=== PATIENT | female | born 1975 | race African-American/Black ===

== ENCOUNTER 2018-10-31 16:57 | Emergency (ER) | payer MEDICAID ==
[2018-10-31 17:13] VITALS: Ht 157.5 cm
[2018-10-31 18:21] VITALS: BP 124/96
== END 2018-10-31 18:21 | disposition home or self-care (01) ==
LOC: ED 16:57
DX: G89.29 Other chronic pain (principal); M25.562 Pain in left knee; J45.909 Unspecified asthma, uncomplicated; Z88.6 Allergy status to analgesic agent